=== PATIENT | female | born 1975 | race Caucasian/White ===

== ENCOUNTER 2017-05-12 13:59 | Emergency (ER) | payer MEDICAID ==
[~2017-05-12] VITALS: Ht 162.6 cm; Wt 61.2 kg
[2017-05-12 16:53] VITALS: BP 125/77
== END 2017-05-12 16:50 | disposition home or self-care (01) ==
LOC: ER 13:59
DX: J20.9 Acute bronchitis, unspecified (principal)
CPT/HCPCS: 71020; 93005